=== PATIENT | female | born 1935 | race Caucasian/White ===

== ENCOUNTER 2017-10-07 19:52 | Inpatient (IN) | payer OTHER ==
[~2017-10-07] VITALS: Ht 157.5 cm; Wt 54.7 kg
--- NOTE | 2017-10-07 20:03 | ED AMS/SEIZURE/WEAK/DIZZY ---
History of Present Illness General Chief Complaint: General Adult Stated Complaint: BIBA WEAKNESS Source: patient, EMS Exam Limitations: no limitations Vital Signs & Intake/Output Vital Signs & Intake/Output Vital Signs Date Time Temp Pulse Resp B/P B/P Pulse O2 O2 Flow FiO2 Mean Ox Delivery Rate 10/07 2328 97.4 82 18 118/62 96 Room Air 10/07 2009 98.8 99 18 149/72 95 ED Intake and Output 10/08 0000 10/07 1200 Intake Total 1000 Output Total Balance 1000 Intake, IV 1000 Patient 115 lb Weight Allergies Uncoded Allergies: Allergy Other N Med Allergies N Triage Nurses Notes Reviewed? yes Onset: Gradual Duration: day(s): Timing: recent history Injury Environment: home Severity: moderate Modifying Factors: Improves With: rest. Associated Symptoms: weakness HPI: 82 yo woman from home, presents with weakness x 1 day. Per the patient, she slipped to the floor and could not get up. She did not hit her head or lose consciousness. She did not feel palpitations or chest pain. She notes continued weakness. Past History Medical History Any Pertinent Medical History? see below for history Surgical History Surgical History: none Psychosocial History What is your primary language [place] Family History Hx Contributory? No Review of Systems Review of Systems Constitutional: Reports: no symptoms. EENTM: Reports: no symptoms. Respiratory: Reports: no symptoms. Cardiovascular: Reports: no symptoms. GI: Reports: no symptoms. Genitourinary: Reports: no symptoms. Musculoskeletal: Reports: no symptoms. Skin: Reports: no symptoms. Neurological/Psychological: Reports: no symptoms. Hematologic/Endocrine: Reports: no symptoms. Immunologic/Allergic: Reports: no symptoms. All Other Systems: Reviewed and Negative Physical Exam Physical Exam General Appearance: well developed/nourished, mild distress Head: atraumatic, normal appearance Eyes: Bilateral: normal appearance, PERRL, EOMI. Ears, Nose, Throat: normal pharynx, dry mucosa Neck: normal inspection, supple, full range of motion Respiratory: normal breath sounds, chest non-tender, no respiratory distress, quiet respiration, lungs clear Gastrointestinal: normal bowel sounds, soft, non-tender, no organomegaly Rectal: normal exam, normal rectal tone Back: normal inspection, normal range of motion Extremities: normal range of motion Neurologic/Psych: no motor/sensory deficits, awake, alert, oriented x 3 Skin: intact, normal color, warm/dry Core Measures ACS in differential dx? No CVA/TIA Diagnosis No Sepsis Present: No Sepsis Focused Exam Completed? No Progress Differential Diagnosis: UTI/pyelo, dehydration vs other. Plan of Care: Orders Procedure Date/time Status Nothing by Mouth 10/08 B Active Pathway - chart 10/08 26 Active House Staff 10/08 002 Active Patient Data 10/08 26 Active Code Status 10/08 26 Active VTE Mechanical Prophylaxis 10/08 UNK Active Patient Data 10/07 235 Active Intake & Output 10/08 2347 Active Saline Lock 10/07 234 Active Misc Message 10/07 2345 Active ED Holding Orders 10/07 2345 Active Admit to inpatient 10/07 234 Active Vital Signs 10/07 2345 Active Code Status 10/07 2345 Complete URINALYSIS 10/08 1999 Complete TROPONIN LEVEL 10/08 1999 Complete LIPASE 10/08 1999 Complete HEPATIC FUNCTION PANEL 10/08 1999 Complete D-DIMER 10/08 1999 Complete CBC WITHOUT DIFFERENTIAL 10/08 1999 Complete BASIC METABOLIC PANEL 10/08 1999 Complete AMYLASE 10/08 1999 Complete EKG 10/08 1999 Active Current Medications Sig/Arminda Start time Last Medication Dose Stop Time Status Admin Heparin Sodium 5,000 UNIT Q8 10/08 0600 UNVr (Porcine) Heparin Sodium 25,000 UNIT Q24H 10/08 0115 UNVr (Porcine) (Heparin) Sodium Chloride 500 ML Heparin Sodium 5,000 UNIT ONCE ONE 10/08 0115 UNVr (Porcine) 10/08 0116 (Heparin Bolus) Acetaminophen 325 MG Q6 PRN 10/08 0030 UNVr (Tylenol) Laboratory Tests 10/07/170: Anion Gap 16, Estimated GFR 39 L, BUN/Creatinine Ratio 41.5 H, Glucose 117 H, Calcium 9.6, Total Bilirubin 0.8, Direct Bilirubin 0.6 H, AST 90 H, ALT 61 H, Alkaline Phosphatase 123, Troponin I 0.02, Total Protein 6.8, Albumin 4.2, Amylase 61, Lipase 115, D-Dimer High Sensitivty 6 H, CBC w Diff MAN DIFF ORDERED, RBC 5.07, MCV 84.4, MCH 27.3, MCHC 32.4 L, RDW 14.5, MPV 8.6, Gran % 84.7 H, Lymphocytes % 5.2 L, Monocytes % 7.0, Eosinophils % 0.1, Basophils % 3.0 H, Absolute Granulocytes 17.0 H, Segmented Neutrophils 92 H, Absolute Lymphocytes 1.0 L, Lymphocytes 3 L, Monocytes 5, Absolute Monocytes 1.4 H, Absolute Eosinophils 0, Absolute Basophils 0.6, Platelet Estimate VERIFIED BY SMEAR, Normocytic RBCs VERIFIED, Normochromic RBCs VERIFIED, Fld Total RBCs Counted 100 10/07/172012: Urine Color LA, Urine Clarity HAZY H, Urine pH 5.5, Ur Specific [place] >= 1.030, Urine Protein TRACE H, Urine Ketones NEG, Urine Nitrite NEG, Urine Bilirubin NEG@ICTO, Urine Urobilinogen 0.2, Ur Leukocyte Esterase TRACE H, Ur Microscopic SEDIMENT EXAMINED, Urine RBC 1-3, Urine WBC 5-10 H, Ur Epithelial Cells MOD H, Urine Bacteria MOD H, Hyaline Casts RARE H, Urine Hemoglobin SMALL H, Urine Glucose NEG Diagnostic Imaging: Viewed by Me: Radiology Read, CT Scan. Discussed w/RAD: Radiology Read, CT Scan. Radiology Impression: PATIENT: DAMIAN REYES PRESENT AGE: 82 PATIENT ACCOUNT NO: [id number] : 35 LOCATION: [facility] ORDERING PHYSICIAN: Spencer Beyer MD SERVICE DATE: 10/07/17 EXAM TYPE: CAT - CT HEAD WO IV CONTRAST EXAMINATION: CT HEAD WITHOUT CONTRAST CLINICAL INFORMATION: Mental status change. Weakness. COMPARISON: None TECHNIQUE : Contiguous axial imaging was performed from the skull base to vertex without intravenous administration of contrast. DLP: 615.53 mGy-cm FINDINGS: There is no evidence of acute intracranial hemorrhage or territorial infarction. No abnormal mass effect or midline shift is seen. Paulino to white matter differentiation is well preserved. No extra-axial fluid collections are identified. There is atrophy with prominence of the ventricles and the sulci and hypodensity of the periventricular white matter due to chronic small vessel ischemic disease. There is vascular calcifications of the internal carotid arteries bilaterally. The osseous structures and soft tissues are normal. The mastoid air cells and visualized portions of the paranasal sinuses are well aerated. IMPRESSION: No acute intracranial pathology. DICTATED BY: Luis Velez MD DATE/TIME DICTATED:2099 PORTABLE CANTEEN OPERATOR:WHITNEY DATE/TIME TRANSCRIBED:10/07/172099 CONFIDENTIAL, DO NOT COPY WITHOUT APPROPRIATE AUTHORIZATION. <Electronically signed in Other Vendor System> SIGNED BY: Luis Velez MD 10/07/172103 CXR Impression: PATIENT: DAMIAN REYES PRESENT AGE : 82 PATIENT ACCOUNT NO: [id number] : 35 LOCATION: [facility] ORDERING PHYSICIAN: Spencer Beyer MD SERVICE DATE: 10/07/17 EXAM TYPE: RAD - XRY-PORTABLE CHEST XRAY EXAMINATION: XR PORTABLE CHEST CLINICAL INFORMATION: Chest pain. COMPARISON: Chest radiograph 01/18/2009. TECHNIQUE: Portable frontal view of the chest was obtained. FINDINGS: The lungs are clear. No pleural effusion. Cardiomediastinal silhouette and pulmonary vasculature are within normal limits. No acute osseous finding. IMPRESSION: No acute cardiopulmonary disease. DICTATED BY: Amadou Ford MD DATE/TIME DICTATED:2054 PORTABLE CANTEEN OPERATOR:WHITNEY DATE/TIME TRANSCRIBED:10/07/172054 CONFIDENTIAL, DO NOT COPY WITHOUT APPROPRIATE AUTHORIZATION. <Electronically signed in Other Vendor System> SIGNED BY: Amadou Ford MD 10/07/172058, PATIENT: DAMIAN REYES PRESENT AGE: 82 PATIENT ACCOUNT NO: [id number] : 35 LOCATION: [facility] ORDERING PHYSICIAN: Spencer Beyer MD SERVICE DATE: 10/07/17 EXAM TYPE: CAT - CTA CHEST- PULMONARY EMBOLISM EXAMINATION: CT ANGIOGRAM OF THE CHEST WITH AND WITHOUT CONTRAST (CT PULMONARY ANGIOGRAM FOR PE) CLINICAL INFORMATION: +dimer, dyspnea COMPARISON: Chest x-ray 10/07/2017 TECHNIQUE: Prior to contrast administration, noncontrast localization images were obtained. Subsequently, multidetector volumetric imaging was performed from the thoracic inlet to below the diaphragms following the administration of 75 mL Optiray 320 intravenous contrast. No contrast reaction reported. Sagittal, coronal, and MIP oblique sagittal reformatted images were obtained on the CT workstation, uploaded to PACS, and reviewed. Total exam dose-length product 230.04 mGy-cm. FINDINGS: QUALITY OF STUDY/CONTRAST BOLUS: Satisfactory PULMONARY ARTERIES: There are several subsegmental bilateral lower lobe emboli, right greater than left. Overall clot burden is relatively mild. THORACIC AORTA: No aneurysm or dissection. There is atherosclerotic calcification along the aorta. LUNG: There is subsegmental atelectasis bilaterally. A branching tubular opacity in the lateral right middle lobe has the appearance of mucoid impaction. There is a 3 mm left upper lobe nodule on image 102/438 laterally. PLEURA: No pleural effusion or pneumothorax. MEDIASTINUM: The visualized thyroid gland is unremarkable. A small hiatal hernia is suspected. No mediastinal lymphadenopathy is seen. Cardiac size is within normal limits; no pericardial effusion. No evidence of septal bowing or right heart strain. CHEST WALL/AXILLA: No axillary or internal mammary lymphadenopathy. OSSEOUS STRUCTURES: No acute or suspicious osseous abnormality. UPPER ABDOMEN: Unremarkable. No reflux of contrast into the hepatic veins to suggest elevated right heart pressures. IMPRESSION: 1. Several subsegmental bilateral lower lobe emboli, right greater than left. 2. Branching tubular opacity in the lateral right middle lobe, suspicious for mucoid impaction. Airway obstruction secondary to endobronchial mass cannot be excluded. 3. Left upper lobe 3 mm lung nodule. According to the UPDATED 2017 Fleischner Society recommendations, the advised follow-up imaging for solid nodules < 6 mm is: LOW RISK PATIENT: No routine follow-up. HIGH RISK PATIENT: Optional CT at 12 months. VTE: positive This critical result was discussed with Spencer Beyer on 1:03 AM, and it was ascertained that the content and urgency of the report was understood at the time of direct communication. DICTATED BY: Rajesh Woodall MD DATE/TIME DICTATED:10/08/1752 PORTABLE CANTEEN OPERATOR:WHITNEY DATE/ TIME TRANSCRIBED:10/08/1752 CONFIDENTIAL, DO NOT COPY WITHOUT APPROPRIATE AUTHORIZATION. <Electronically signed in Other Vendor System> SIGNED BY: Rajesh Woodall MD 10/08/17 0109 Initial ED EKG: RBBB Departure Departure Disposition: STILL A PATIENT Condition: Stable Clinical Impression Primary Impression: Weakness Secondary Impressions: Acute renal failure, Dehydration, Leukocytosis, Pulmonary emboli Referrals: Patient Has No Primary Care Dr (PCP/Family) Departure Forms: Customer Survey General Discharge Information Comments 10/08/17, 0:33... called daughter and discussed results/admission... ct angio pending. 10/08/17, 1:10am.. .discussed with [facility]... pt with subsegmental PE 's. Admission Note Spoke With: Filipe MCBRIDE,[facility] Documentation of Exam: Documentation of any treatments & extenuating circumstances including Concerns Regarding Discharge (functional status, medication knowledge or non-compliance, living conditions, etc.) that warrant an admission rather than observation: pt with weakness, elevated bun/cr ratio... pt merits iv fluids. elevated wbc count without source... will follow symptoms. also with pulmonary emboli, low clot burden. she will likely need short vs [facility] care. Critical Care Note Critical Care Note Critical Care Time: 30-74 min
--- NOTE | 2017-10-07 20:59 | RADIOLOGY REPORT ---
EXAMINATION: XR PORTABLE CHEST CLINICAL INFORMATION: Chest pain. COMPARISON: Chest radiograph 01/18/2009. TECHNIQUE: Portable frontal view of the chest was obtained. FINDINGS: The lungs are clear. No pleural effusion. Cardiomediastinal silhouette and pulmonary vasculature are within normal limits. No acute osseous finding. IMPRESSION: No acute cardiopulmonary disease.
--- NOTE | 2017-10-07 21:04 | CT SCAN REPORT ---
EXAMINATION: CT HEAD WITHOUT CONTRAST CLINICAL INFORMATION: Mental status change. Weakness. COMPARISON: None TECHNIQUE: Contiguous axial imaging was performed from the skull base to vertex without intravenous administration of contrast. DLP: 615.53 mGy-cm FINDINGS: There is no evidence of acute intracranial hemorrhage or territorial infarction. No abnormal mass effect or midline shift is seen. Paulino to white matter differentiation is well preserved. No extra-axial fluid collections are identified. There is atrophy with prominence of the ventricles and the sulci and hypodensity of the periventricular white matter due to chronic small vessel ischemic disease. There is vascular calcifications of the internal carotid arteries bilaterally. The osseous structures and soft tissues are normal. The mastoid air cells and visualized portions of the paranasal sinuses are well aerated. IMPRESSION: No acute intracranial pathology.
[2017-10-07 22:57] LABS: ABSOLUTE BASOPHIL COUNT 0.6 /CUMM (0.0-0.2); ABSOLUTE EOSINOPHIL COUNT 0 /CUMM (0.0-0.7); ABSOLUTE MONOCYTE COUNT 1.4 /CUMM (0.10-0.60); EOSINOPHIL % 0.1 % (0-5); HEMATOCRIT 42.7 % (37-47); MEAN CORPUSCULAR HGB 27.3 PG (27.0-31.0); MEAN CORPUSCULAR HGB CONC 32.4 G/DL (33.0-37.0); MEAN CORPUSCULAR VOLUME 84.4 FL (81.0-99.0); MEAN PLATELET VOLUME 8.6 FL (7.4-10.4); PLATELET COUNT 519 /CUMM (130-400); RBC DISTRIBUTION WIDTH 14.5 % (11.5-14.5); RED BLOOD CELL CT 5.07 /CUMM (4.20-5.40)
[2017-10-07 23:00] LABS: GRANULOCYTE % 84.7 % (42.2-75.2)
--- NOTE | 2017-10-08 01:09 | CT SCAN REPORT ---
EXAMINATION: CT ANGIOGRAM OF THE CHEST WITH AND WITHOUT CONTRAST (CT PULMONARY ANGIOGRAM FOR PE) CLINICAL INFORMATION: +dimer, dyspnea COMPARISON: Chest x-ray 10/07/2017 TECHNIQUE: Prior to contrast administration, noncontrast localization images were obtained. Subsequently, multidetector volumetric imaging was performed from the thoracic inlet to below the diaphragms following the administration of 75 mL Optiray 320 intravenous contrast. No contrast reaction reported. Sagittal, coronal, and MIP oblique sagittal reformatted images were obtained on the CT workstation, uploaded to PACS, and reviewed. Total exam dose-length product 230.04 mGy-cm. FINDINGS: QUALITY OF STUDY/CONTRAST BOLUS: Satisfactory PULMONARY ARTERIES: There are several subsegmental bilateral lower lobe emboli, right greater than left. Overall clot burden is relatively mild. THORACIC AORTA: No aneurysm or dissection. There is atherosclerotic calcification along the aorta. LUNG: There is subsegmental atelectasis bilaterally. A branching tubular opacity in the lateral right middle lobe has the appearance of mucoid impaction. There is a 3 mm left upper lobe nodule on image 102/438 laterally. PLEURA: No pleural effusion or pneumothorax. MEDIASTINUM: The visualized thyroid gland is unremarkable. A small hiatal hernia is suspected. No mediastinal lymphadenopathy is seen. Cardiac size is within normal limits; no pericardial effusion. No evidence of septal bowing or right heart strain. CHEST WALL/AXILLA: No axillary or internal mammary lymphadenopathy. OSSEOUS STRUCTURES: No acute or suspicious osseous abnormality. UPPER ABDOMEN: Unremarkable. No reflux of contrast into the hepatic veins to suggest elevated right heart pressures. IMPRESSION: 1. Several subsegmental bilateral lower lobe emboli, right greater than left. 2. Branching tubular opacity in the lateral right middle lobe, suspicious for mucoid impaction. Airway obstruction secondary to endobronchial mass cannot be excluded. 3. Left upper lobe 3 mm lung nodule. According to the UPDATED 2017 Fleischner Society recommendations, the advised follow-up imaging for solid nodules < 6 mm is: LOW RISK PATIENT: No routine follow-up. HIGH RISK PATIENT: Optional CT at 12 months. VTE: positive This critical result was discussed with Spencer Beyer on 10/08/2017 1:03 AM, and it was ascertained that the content and urgency of the report was understood at the time of direct communication.
--- NOTE | 2017-10-08 01:33 | History & Physical ---
Niurka Davis 10/08/17 0132: General Information and HPI MD Statement: I have seen and personally examined DAMIAN REYES and documented this H&P. The patient is a 82 year old F who presented with a patient stated chief complaint of [Weakness]. Source of Information: patient Exam Limitations: not alert/orientated, clinical condition, confusion, poor historian History of Present Illness: Ms. Reyes is a 82yo F w/ unknown PMHs and no previous inpatient admission at [facility], presented to ER with weakness 1 day. Based on the ER record, patient was sent in from home with some family members including her daughter, and patient slept on the floor and could not get up from there, however denied hitting her head or loss of consciousness. During our clinical interaction, without patient's family in room, patient appeared to be drowsy and fell asleep from time to time during history taking. However patient denies any discomfort in the past 2 weeks, and denied fever/ night sweat/weight change/cough/SOB/Chest Pain/Palpitation/exercise intolerance/ Abdominal pain/bowel movement/urinary abnormality, or other skin/musculoskeletal /neurological disorders. Patient stated that she lives by herself and takes care of herself and cooks for herself. She also stated that she could walk by herself without any use of walker/cane. She said her daughter came in with her from time to time. However patient appeared not to be oriented to time or place , despite being able to follow all commands. She also denied remember anything before ER visit, and denied remembering that she fell on the ground. Allergies/Medications Allergies: Uncoded Allergies: Allergy Other N Med Allergies N Past History Medical History Any Pertinent Medical History? unobtainable Surgical History Surgical History: none Review of Systems Review of Systems Constitutional: Reports: see HPI. Exam & Diagnostic Data Last 24 Hrs of Vital Signs/I&O Vital Signs Date Time Temp Pulse Resp B/P B/P Pulse O2 O2 Flow FiO2 Mean Ox Delivery Rate 10/07 2328 97.4 82 18 118/62 96 Room Air 10/07 2009 98.8 99 18 149/72 95 Intake & Output 10/08 0800 10/08 0000 10/07 1600 Intake Total 1000 Output Total Balance 1000 Intake, IV 1000 Patient 52.163 kg Weight Physical Exam General Appearance Alert, Cooperative, No Acute Distress, Oriented to self and birthday Skin No Significant Lesion Skin Temp/Moisture Exam: Warm/Dry Sepsis Skin Exam (color): Normal for Ethnicity HEENT Atraumatic, PERRLA, dry mucous Neck Supple, No JVD Cardiovascular Regular Rate Lungs Clear to Auscultation, Normal Air Movement Abdomen Normal Bowel Sounds, Soft, No Tenderness Neurological Lethargic BUE 4/5 strength BLE 3/5 strength, reflex intact, sensations grossly intact Extremities No Edema, Normal Pulses, No Tenderness/Swelling, deformed great toe joints however no tenderness. Last 24 Hrs of Labs/Dominick: Laboratory Tests 10/07/172149: Anion Gap 16, Estimated GFR 39 L, BUN/Creatinine Ratio 41.5 H, Glucose 117 H, Calcium 9.6, Total Bilirubin 0.8, Direct Bilirubin 0.6 H, AST 90 H, ALT 61 H, Alkaline Phosphatase 123, Creatine Kinase Pending, Troponin I 0.02, Total Protein 6.8, Albumin 4.2, Amylase 61, Lipase 115, TSH Pending, Cortisol PM Sample Pending, D-Dimer High Sensitivty 215 H, CBC w Diff MAN DIFF ORDERED, RBC 5.07, MCV 84.4, MCH 27.3, MCHC 32.4 L, RDW 14.5, MPV 8.6, Gran % 84.7 H, Lymphocytes % 5.2 L, Monocytes % 7.0, Eosinophils % 0.1, Basophils % 3.0 H, Absolute Granulocytes 17.0 H, Segmented Neutrophils 92 H, Absolute Lymphocytes 1.0 L, Lymphocytes 3 L, Monocytes 5, Absolute Monocytes 1.4 H, Absolute Eosinophils 0, Absolute Basophils 0.6, Platelet Estimate VERIFIED BY SMEAR, Normocytic RBCs VERIFIED, Normochromic RBCs VERIFIED, Fld Total RBCs Counted 100 10/07/172012: Urine Color LA, Urine Clarity HAZY H, Urine pH 5.5, Ur Specific [place] >= 1.030, Urine Protein TRACE H, Urine Ketones NEG, Urine Nitrite NEG, Urine Bilirubin NEG@ICTO, Urine Urobilinogen 0.2, Ur Leukocyte Esterase TRACE H, Ur Microscopic SEDIMENT EXAMINED, Urine RBC 1-3, Urine WBC 5-10 H, Ur Epithelial Cells MOD H, Urine Bacteria MOD H, Hyaline Casts RARE H, Urine Hemoglobin SMALL H, Urine Glucose NEG Assessment/Plan Assessment: Ms. Reyes is a 82yo F w/ unknown PMHs and no previous inpatient admission at [facility], presented to ER with weakness 1 day. Based on the ER record, patient was sent in from home with some family members including her daughter, and patient slept on the floor and could not get up from there, however denied hitting her head or loss of consciousness. During our clinical interaction, without patient's family in room, patient appeared to be drowsy and fell asleep from time to time during history taking. However patient denies any discomfort in the past 2 weeks, and denied fever/ night sweat/weight change/cough/SOB/Chest Pain/Palpitation/exercise intolerance/ Abdominal pain/bowel movement/urinary abnormality, or other skin/musculoskeletal /neurological disorders. Patient stated that she lives by herself and takes care of herself and cooks for herself. She also stated that she could walk by herself without any use of walker/cane. She said her daughter came in with her from time to time. However patient appeared not to be oriented to time or place , despite being able to follow all commands. She also denied remember anything before ER visit, and denied remembering that she fell on the ground. On admission, Vitals: Stable, afebrile, BP 149/72, pulse 99, room air -CBC: Leukocytosis 20.0, H/H stable, PLT 519, -BMP: Unremarkable except elevated creatinine 1.3 (no baseline). Mildly elevated LFTs AST/ALT 90/61 -UA/Microbiology: Moderate bacteria/trace LE positive, negative nitrite -CXR: No acute -Head CT: No acute -Chest CTA: 1. Several subsegmental bilateral lower lobe emboli, right greater than left. 2. Branching tubular opacity in the lateral right middle lobe, suspicious for mucoid impaction. Airway obstruction secondary to endobronchial mass cannot be excluded. 3. Left upper lobe 3 mm lung nodule. -EKG: NSR with RBBB, w/o significant ST-T abnormalities. -Interventions in ER: IV fluids Problem list & Assessment: Was clear evidence of chest CTA showing pulmonary emboli, with questionable mucoid impaction/malignancy, patient's symptoms could be iritis mainly from the pulmonary embolism. However patient's history was not complete due to clinical conditions, and her leukocytosis was of unknown etiology without fever and no consolidation/opacity was found on CTA, and patient denied any urinary symptoms, despite being positive bacteriuria/LE. Patient's physical examination reveals a dry mucosa which could lead to the AK I as well. Patient's transaminitis was also of unknown etiology, with a benign physical examination of abdomen. Patient's daughter was not reached through the number provided. #Pulmonary embolism #Mucoid impaction, pending rule out malignancy #Questionable UTI #DIGNA secondary to dehydration #Transaminitis #Weakness #Leukocytosis, with unclear etiology, likely reactive Hospital Course: - Admit to general medicine floor physical examination -Keep NPO for formal swallow eval in the AM. leukocytosis could be reactive. DVT prophylaxis Heparin + ALPS NPO Full Code JOSE B[place]MING[place] [phone] As Ranked By This Provider Problem List: 1. Pulmonary emboli 2. Leukocytosis 3. Acute renal failure 4. Dehydration 5. Weakness Core Measures/Misc (02/25) Acute Coronary Syndrome ACS Diagnosis: No Congestive Heart Failure Congestive Heart Failure Diagnosis No Cerebrovascular Accident CVA/TIA Diagnosis: No VTE (View Protocol) VTE Risk Factors Age>40 No Mechanical VTE Prophylaxis d/t N/A MechProphylax Ordered No VTE Pharm Prophylaxis d/t NA PharmProphylax ordered Sepsis (View protocol) Sepsis Present: No Mahad Davenport 10/08/17 0159: Resident Review Statement Resident Statement: examined this patient, discussed with internal audit manager Other Findings: Patient is a 82-year-old female with no significant past medical history presented to the ER was brought in by ambulance to the ER for a mechanical fall and weakness. Patient cannot provide much history given her clinical condition. Most of the data is obtained from ER notes. Patient apparently was brought in by EMS status post mechanical fall. Patient slipped to the floor and could not get up. She has been very weak for the past few days. Denies any chest pain, palpitations, nausea, vomiting, abdominal pain, fevers, chills, urinary or bowel symptoms. At examination she appears very drowsy and fatigued. Does not remember the incidents at home. There is no past medical history the system. Patient's daughter Jose([phone]) could not be reached over the phone. In the ED vitals were stable Labs significant for an leukocytosis of 20 with no left shift, platelet count 519, BUN 54, creatinine 1.3(no baseline), AST 90, ALT 61, troponin 0.02. D- dimer 2156 UA positive for trace leukocyte esterase, moderately high bacteria Chest x-ray, head CT negative Chest CTA positive for several subsegmental bilateral lower lobe emboli R>L. Branching tubular opacity in the lateral right middle lobe? Mucoid impaction / endobronchial mass? Malignancy. 3 mm left upper lobe lung nodule seen Physical exam General: Drowsy, lethargic, falls asleep while answering questions, not oriented to time, place or person HEENT: PERRLA, EOMI, mucous membranes dry Chest: Diminished breath sounds bilaterally CVS: S1 and S2 heard, no murmurs Abdomen: BS positive, no tenderness Neurological: Power 3/5 in b/l LE, 4/ 5 in b/l UE, reflexes intact Extremities: No edema, poor feet hygiene, calluses under bilateral feet, unkept nails Assessment Bilateral subsegmental pulmonary embolism Endobronchial mass in the right middle lobe? Malignancy Leukocytosis? Reactive Transaminitis Acute kidney injury(? CKD) likely prerenal due to dehydration Weakness and Generalized deconditioning due to Dehydration/ infection Asymptomatic bactiuria Plan Admit patient to [facility] Vitals per protocol IV hydration with D5 half normal saline at 75 cc an hour IV heparin for PE. Patient is guaiac-negative in the ED Dopplers b/l lower erxtremities Pulmonary consult in a.m. Right upper quadrant ultrasound for transaminitis Leukocytosis likely reactive/?UTI, patient afebrile, we will watch off antibiotics at this time Pancultures Kidney injury likely secondary to dehydration, will check BP in a.m., avoid nephrotoxins Check TSH, cortisol, creatinine kinase We will keep patient nothing by mouth for now Formal swallow eval in a.m. PT/OT consult for weakness and generalized deconditioning Patient will require a STR placement DVT prophylaxis IV heparin Full code We'll try to contact the patient's daughter over the phone. Please talk to family about the goals of care/CODE STATUS. Willingness of the family to pursue further workup about the questionable endobronchial mass. Filipe MCBRIDE, [facility] 10/08/17 0433: Attending MD Review Statement Attending Statement Attending MD Statement: examined this patient, discuss w/resident/PA/[employer], agreed w/resident/PA/[employer], reviewed images, amended to note Attending Assessment/Plan: 82 yo F with no known medical history who has never been evaluated at [facility] is brought from home for weakness and fall. It is unclear if patient has baseline dementia, but she was unable to provide us with any history. She was extremely tired and fell asleep. We tried to reach her daughter but no response. From what the ER reported, patient was very weak and fell at home. She was unable to get off the floor. No h/o head strike or LOC. Patient currently denies any symptoms. Vitals stable. Exam as above. Labs: WBC 20, H/H 13.9/42.7, Plt 519, D-dimer 2156 , BUN 54, creat 1.3 (baseline not known), glucose 117, T. Bili 0.8, AST 90, ALT 61, CK 887, trop 0.02. UA hazy, trace protein, trace LE with WBC 5-10. CXR: no acute disease. CT head: no acute pathology. CTA chest: several subsegmental bilateral lower lobe emboli, branching tubular opacity in RML suspicious for mucoid impaction or airway obstruction from endobronchial mass. Left upper lobe nodule+. EKG: sinus rhythm, RBBB, Qtc 509 (no old EKG for comparison). No acute ST-T wave changes. Assessment and plan: 1. Weakness, physical deconditioning 2. Bilateral pulmonary embolism 3. CT suggestive of mucoid impaction or mass causing obstruction rule out malignancy 4. Leukocytosis likely reactive 5. RBBB on EKG 6. DIGNA dehydration 7. Transaminitis 8. Asymptomatic bacteriuria - Admit to General medicine - Panculture - [facility] nebs - IV heparin per PTT protocol plan to transition to eliquis - Guaiac all stools - Obtain LE dopplers in AM - Obtain Echo to assess for right heart strain - Serial EKG and troponin to rule out ACS - Gentle hydration - Pulm consult - Outpatient Heme-Onc follow up - Please obtain collateral information from family about patient's medical problems, goals of care and if they are agreeable for further evaluation of the lung mass - RUQ ultrasound in AM - Check tylenol levels, TSH, salicylate level and Hep panel - Avoid NSAIDs - NPO, obtain swallow eval in AM - PT eval, eventual STR. DVT ppx IV heparin. Full code (code status needs to be discussed with family)
[2017-10-08 02:00] VITALS: BP 152/72
--- NOTE | 2017-10-08 04:38 | Admission Certification ---
Admission Certification Certification Statement - As attending physician, I certify that at the time of - admission, based on clinical presentation, severity of - symptoms, need for further diagnostic testing and - therapeutic interventions, and risk of adverse outcomes - without in-hospital treatment, in my clinical assessment, - this patient requires an acute hospital stay for a minimum - of two nights or longer. I have also considered psychsocial - factors such as support system, advanced age, financial - issues, cognitive issues, and failed out-patient treatments, - past re-admission history, safety of patient, and lack of - compliance as applicable. Specific rationale supporting this admission is: Weakness, bilateral pulmonary embolism
[2017-10-08 06:56] VITALS: BP 158/74
--- NOTE | 2017-10-08 07:47 | Event Note ---
Event Note Event Note: 82-year-old female with past medical history of ? Alzheimer's dementia, restless leg syndrome, not medical checkup in many years, presented with weakness, was found to have bilateral pulmonary embolism, not sure about the provoking factor. She is currently receiving IV heparin, and is undergoing further workup. Bilateral lower extremity Doppler has been negative for DVT, and the patient has been ambulated. SHe is saturating well on room air. In the meantime, we are also working up for her possible dementia. Also, her leukocytosis possibly is reactive.
[2017-10-08 08:18] LABS: PTT 82 SEC (25-37)
[2017-10-08 08:30] LABS: ABSOLUTE BASOPHIL COUNT 0 /CUMM (0.0-0.2); ABSOLUTE EOSINOPHIL COUNT 0.1 /CUMM (0.0-0.7); ABSOLUTE GRANULOCYTE CT 10.7 /CUMM (1.4-6.5); ABSOLUTE LYMPH COUNT 1.8 /CUMM (1.2-3.4); ABSOLUTE MONOCYTE COUNT 0.8 /CUMM (0.10-0.60); BASOPHIL % 0.2 % (0.0-2.0); EOSINOPHIL % 0.4 % (0-5); GRANULOCYTE % 79.9 % (42.2-75.2); MEAN CORPUSCULAR HGB 28.5 PG (27.0-31.0); MEAN CORPUSCULAR HGB CONC 33.9 G/DL (33.0-37.0); MEAN CORPUSCULAR VOLUME 84.1 FL (81.0-99.0); MEAN PLATELET VOLUME 8.8 FL (7.4-10.4); PLATELET COUNT 459 /CUMM (130-400); RBC DISTRIBUTION WIDTH 14.1 % (11.5-14.5); RED BLOOD CELL CT 4.27 /CUMM (4.20-5.40); WHITE BLOOD CELL COUNT 13.3 /CUMM (4.8-10.8)
[2017-10-08 08:51] LABS: HEMATOCRIT 35.9 % (37-47)
--- NOTE | 2017-10-08 10:20 | Cons- Pulmonary ---
General Information and HPI Consulting Request Date of Consult: 10/08/17 Requested By: Edd Reason for Consult: Pulmonary embolism History of Present Illness: Patient is 82-year-old brought to the ER because of weakness her history was nonspecific and because of an elevated d-dimer CTA was done which showed small subsegmental pulmonary emboli and mucous plugging and distant right middle lobe bronchus. Patient denies any respiratory symptoms. Is no history of prior DVT or PE. Allergies/Medications Allergies: Uncoded Allergies: Allergy Other N Med Allergies N Review of Systems Review of Systems Constitutional: Denies: chills, fever. Cardiovascular: Denies: chest pain, edema. Respiratory: Denies: cough, hemoptysis, short of breath. GI: Denies: abdominal pain, diarrhea, melena. Past History Travel History Traveled to [place] past 21 day No Medical History Blood Transfusion Hx: No Neurological: dementia Surgical History Surgical History: 1 Psychosocial History Where Do You Live? Home Services at Home: None Smoking Status: Never Smoked Exam & Diagnostic Data Last 24 Hrs of Vital Signs/I&O Vital Signs Date Time Temp Pulse Resp B/P B/P Pulse O2 O2 Flow FiO2 Mean Ox Delivery Rate 10/08 0656 97.3 76 18 158/74 96 10/08 0200 97.6 83 18 152/72 95 10/08 0150 Room Air 10/07 2329 97.4 82 18 118/62 96 Room Air 10/07 2010 98.8 99 18 149/72 95 Intake & Output 10/08 1600 10/08 0800 10/08 0000 Intake Total 303.8 1000 Output Total 400 Balance -96.2 1000 Intake, IV 303.8 1000 Intake, Oral 0 Number 0 Bowel Movements Output, Urine 400 Patient 121 lb 115 lb Weight Weight Bed scale Measurement Method Room air oxygen saturation 95% HNT exam shows no adenopathy or jugular venous distention exam for chest shows clear lung renee cardiac exam shows regular S1 and S2 without murmurs abdomen is soft nontender extremities without edema or calf tenderness Last 48 Hrs of Labs/Dominick: Laboratory Tests 10/08/17 0709: Anion Gap 10, Estimated GFR > 60, BUN/Creatinine Ratio 48.8 H, APTT 82 H, CBC w Diff NO MAN DIFF REQ, RBC 4.27, MCV 84.1, MCH 28.5, MCHC 33.9, RDW 14.1, MPV 8.8, Gran % 79.9 H, Lymphocytes % 13.4 L, Monocytes % 6.1, Eosinophils % 0.4, Basophils % 0.2, Absolute Granulocytes 10.7 H, Absolute Lymphocytes 1.8, Absolute Monocytes 0.8 H, Absolute Eosinophils 0.1, Absolute Basophils 0, Hepatitis A IgM Ab Pending, Hep Bs Antigen Pending, Hep B Core IgM Ab Conf Pending, Hepatitis C Antibody Pending, Acetaminophen < 10.0 L 10/07/172149: Anion Gap 16, Estimated GFR 39 L, BUN/Creatinine Ratio 41.5 H, Glucose 117 H, Calcium 9.6, Total Bilirubin 0.8, Direct Bilirubin 0.6 H, AST 90 H, ALT 61 H, Alkaline Phosphatase 123, Creatine Kinase 887 H, Troponin I 0.02, Total Protein 6.8, Albumin 4.2, Amylase 61, Lipase 115, TSH 1.420, Cortisol PM Sample 22.0 H, D-Dimer High Sensitivty 2156 H, CBC w Diff MAN DIFF ORDERED, RBC 5.07, MCV 84.4 , MCH 27.3, MCHC 32.4 L, RDW 14.5, MPV 8.6, Gran % 84.7 H, Lymphocytes % 5.2 L, Monocytes % 7.0, Eosinophils % 0.1, Basophils % 3.0 H, Absolute Granulocytes 17.0 H, Segmented Neutrophils 92 H, Absolute Lymphocytes 1.0 L, Lymphocytes 3 L, Monocytes 5, Absolute Monocytes 1.4 H, Absolute Eosinophils 0, Absolute Basophils 0.6, Platelet Estimate VERIFIED BY SMEAR, Normocytic RBCs VERIFIED, Normochromic RBCs VERIFIED, Fld Total RBCs Counted 100 10/07/172012: Urine Color LA, Urine Clarity HAZY H, Urine pH 5.5, Ur Specific [place] >= 1.030, Urine Protein TRACE H, Urine Ketones NEG, Urine Nitrite NEG, Urine Bilirubin NEG@ICTO, Urine Urobilinogen 0.2, Ur Leukocyte Esterase TRACE H, Ur Microscopic SEDIMENT EXAMINED, Urine RBC 1-3, Urine WBC 5-10 H, Ur Epithelial Cells MOD H, Urine Bacteria MOD H, Hyaline Casts RARE H, Urine Hemoglobin SMALL H, Urine Glucose NEG Assessment/Plan Impression/Plan: 82-year-old woman without history symptoms was found to have multiple subsegmental pulmonary emboli but appears to be mucous plugging and a distal right middle lobe bronchus. The explanation for thromboembolism is this point unknown. There is no evidence of hemodynamic compromise Recommendations: Continue anticoagulation. Assess fall risk. Outpatient hypercoagulable workup. No immediate need for further evaluation of right middle lobe mucous plugging. Repeat CBCs. Consult Acknowledgment - Thank you for your consult request.
--- NOTE | 2017-10-08 10:57 | ULTRASOUND REPORT ---
EXAMINATION: US TRIPLEX OF LOWER EXTREMITIES, BILATERAL CLINICAL INFORMATION: Pulmonary embolus. COMPARISON: None TECHNIQUE: Color-flow triplex imaging with spectral analysis and compression Doppler were performed on the lower extremities. FINDINGS: Respiratory variation, normal compression and augmented flow are noted throughout the lower extremities. The visualized common femoral vein, superficial femoral vein, profunda femoral vein, popliteal vein and midcalf peroneal and posterior tibial venous segments show no evidence of deep venous thrombosis. There is no Sullivan's cyst. IMPRESSION: Normal triplex scan without evidence of deep venous thrombosis involving the lower extremities.
--- NOTE | 2017-10-08 12:37 | ULTRASOUND REPORT ---
EXAMINATION: US ABDOMEN LIMITED CLINICAL INFORMATION: Transaminitis. Rule out acute pathology.. COMPARISON: None TECHNIQUE: Real-time imaging of the right upper quadrant abdominal viscera. FINDINGS: PANCREAS: Normal. LIVER: Normal. The liver demonstrates normal size, contour and echogenicity. No focal lesion or intrahepatic biliary duct dilatation. GALLBLADDER: Normal. The gallbladder is physiologically distended without evidence of stones, sludge, polyps, wall thickening or pericholecystic fluid. COMMON BILE DUCT: Normal in caliber measuring 0.4 cm in diameter. RIGHT KIDNEY: There is a 0.6 x 0.4 x 0.5 cm simple cyst in the lower pole of the right kidney. No hydronephrosis. No renal calculi or suspicious focal parenchymal lesions. The kidney measures 10.0 cm in maximum dimension. FREE FLUID: None. IMPRESSION: 1. Incidental subcentimeter-sized simple cyst in the lower pole of the right kidney. 2. Otherwise unremarkable right upper quadrant ultrasound.
[2017-10-08 15:03] VITALS: BP 148/78
--- NOTE | 2017-10-08 16:40 | CT SCAN REPORT ---
EXAMINATION: CT ABDOMEN AND PELVIS WITHOUT CONTRAST CLINICAL INFORMATION: Unremarkable pulmonary embolism. Patient has not visited physician for a long time. No pertinent history available. Rule out tumor, pelvic vein thrombosis, other abdominal pathology. COMPARISON: Right upper quadrant ultrasound dated 10/08/2017. CTA of the chest dated 10/07/2017. TECHNIQUE: Multidetector volumetric imaging was performed from the superior aspect of the liver through the pubic symphysis. Sagittal and coronal reformatted images were obtained on the technologist workstation. DLP: 229.34 mGy-cm. FINDINGS: LUNG BASES: Aortic and mitral annular calcifications seen. Included lower lungs unremarkable. CHEST WALL: There is a 1.7 x 1.2 cm diameter oval enhancing mass in the lower lateral left breast. LIVER, GALLBLADDER, AND BILIARY TREE: The liver is normal in size, shape, and attenuation. No focal hepatic lesion on noncontrast imaging. No biliary ductal dilatation is present. The gallbladder is decompressed and not well assessed. No definite evidence of radiopaque gallstones, gallbladder wall thickening, or obvious pericholecystic inflammatory changes. PANCREAS: Unremarkable on noncontrast imaging. SPLEEN, ADRENAL GLANDS: Unremarkable on noncontrast imaging. KIDNEYS AND URETERS: The kidneys are normal in size, shape, and attenuation. There is a 2.2 cm partially exophytic mid left renal low-attenuation mass with mean attenuation values of 7.8 Hounsfield units, consistent with a benign cyst. The tiny subcentimeter sized lower pole right renal cyst seen on ultrasound is not appreciated on. No hydronephrosis or hydroureter seen. Evaluation for renal and ureteral calculi is limited due to excretion of contrast in the collecting system from previously administered IV contrast. No perinephric stranding. BLADDER: Well distended with the previously administered IV contrast. Posterior bladder diverticulum is seen arising from the posterior and left side of the bladder base. PELVIC VISCERA: Unremarkable. GASTROINTESTINAL TRACT: The small and large bowel are unremarkable. The appendix is not seen. ABDOMINAL WALL: A tiny fat-containing umbilical hernia is seen. LYMPH NODES, VASCULAR: Severe atherosclerotic calcifications of the aorta and branch vessels noted. No significant abdominal or pelvic adenopathy. No free fluid. OSSEOUS STRUCTURES: There is a convex right thoracolumbar scoliosis. No suspicious bone findings. IMPRESSION: 1. 1.7 x 1.2 cm diameter enhancing mass in the lower lateral left breast. This is a suspicious finding especially in the clinical setting provided. Malignancy must be excluded. Further assessment with dedicated mammogram and ultrasound is recommended. 2. No acute intra-abdominal or pelvic process seen on noncontrast imaging. Please note, sensitivity for the evaluation on noncontrast study is not adequate to exclude pelvic vein thrombosis and is limited for the evaluation of tumors or other masses. 3. Left renal cyst. The tiny cyst seen on recent right upper quadrant ultrasound in the right kidney is not appreciated on this noncontrast study. 4. Small bladder diverticulum. 5. Severe atherosclerotic vascular calcifications.
--- NOTE | 2017-10-08 18:48 | PN- Att Addend ---
Attending Addendum Attending Brief Note S: The patient remains somewhat vague a historian. Daughter present at bedside who states she is improved, however not at baseline mental status. There has been a definite change in her behavior. O: VS: Vital Signs Date Time Temp Pulse Resp B/P B/P Pulse O2 O2 Flow FiO2 Mean Ox Delivery Rate 10/08 1503 97.9 79 18 148/78 95 Room Air 10/08 0656 97.3 76 18 158/74 96 10/08 0200 97.6 83 18 152/72 95 10/08 0150 Room Air 10/07 2329 97.4 82 18 118/62 96 Room Air 10/07 2009 98.8 99 18 149/72 95 Intake & Output 10/08 1600 10/08 0800 10/08 0000 Intake Total 1240 303.8 1000 Output Total 600 400 Balance 640 -96.2 1000 Intake, IV 760 303.8 1000 Intake, Oral 480 0 Number 0 Bowel Movements Output, Urine 600 400 Patient 121 lb 115 lb Weight Weight Bed scale Measurement Method Current Medications Sig/Arminda Start time Last Medication Dose Route Stop Time Status Admin Acetaminophen 325 MG Q6 PRN 10/08 0030 AC PO Dextrose/Sodium 1,000 ML Q13H 10/08 0215 DC Chloride IV Ergocalciferol 50,000 IU Tu 10/09 0900 AC PO 11/27 0901 Heparin Sodium 5,000 UNIT Q8 10/08 0600 CAN (Porcine) SC Heparin Sodium 25,000 UNIT Q24H 10/08 0115 AC 10/08 (Porcine) IV 1026 Sodium Chloride 500 ML Heparin Sodium 5,000 UNIT ONCE ONE 10/08 0115 DC 10/08 (Porcine) IV 10/08 0116 0254 Patient Medication 1 ED ONE ONE 10/08 1500 DC Teaching ED 10/08 1501 Sodium Chloride 1,000 ML Q13H 10/08 0345 DC 10/08 IV 10/08 1644 0357 Sodium Chloride 1,000 ML BOLUS ONE 10/07 2115 DC 10/07 IV 10/07 2214 2204 Physical Exam: HEENT: eyes- PERRLA, EOMI denise- slightly dry mucosa Neck: no JVD/bruits Chest: clear Cor: RRR nl S1, S2 w/o murm Abd: BS+, soft, NT Ext: no edema Labs/Tests: Laboratory Tests 10/08/17 0709: Anion Gap 10, Estimated GFR > 60, BUN/Creatinine Ratio 48.8 H, Vitamin B12 346, 25-OH Vitamin D Total 7.3 L, APTT 82 H, CBC w Diff NO MAN DIFF REQ, RBC 4.27, MCV 84.1, MCH 28.5, MCHC 33.9, RDW 14.1, MPV 8.8, Gran % 79.9 H, Lymphocytes % 13.4 L, Monocytes % 6.1, Eosinophils % 0.4, Basophils % 0.2, Absolute Granulocytes 10.7 H, Absolute Lymphocytes 1.8, Absolute Monocytes 0.8 H, Absolute Eosinophils 0.1, Absolute Basophils 0, Hepatitis A IgM Ab NONREACTIVE, Hep Bs Antigen NONREACTIVE, Hep B Core IgM Ab Conf NONREACTIVE, Hepatitis C Antibody NONREACTIVE, Acetaminophen < 10.0 L 10/07/172149: Anion Gap 16, Estimated GFR 39 L, BUN/Creatinine Ratio 41.5 H, Glucose 117 H, Calcium 9.6, Total Bilirubin 0.8, Direct Bilirubin 0.6 H, AST 90 H, ALT 61 H, Alkaline Phosphatase 123, Creatine Kinase 887 H, Troponin I 0.02, Total Protein 6.8, Albumin 4.2, Amylase 61, Lipase 115, TSH 1.420, Cortisol PM Sample 22.0 H, D-Dimer High Sensitivty 2156 H, CBC w Diff MAN DIFF ORDERED, RBC 5.07, MCV 84.4 , MCH 27.3, MCHC 32.4 L, RDW 14.5, MPV 8.6, Gran % 84.7 H, Lymphocytes % 5.2 L, Monocytes % 7.0, Eosinophils % 0.1, Basophils % 3.0 H, Absolute Granulocytes 17.0 H, Segmented Neutrophils 92 H, Absolute Lymphocytes 1.0 L, Lymphocytes 3 L, Monocytes 5, Absolute Monocytes 1.4 H, Absolute Eosinophils 0, Absolute Basophils 0.6, Platelet Estimate VERIFIED BY SMEAR, Normocytic RBCs VERIFIED, Normochromic RBCs VERIFIED, Fld Total RBCs Counted 100 10/07/172012: Urine Color LA, Urine Clarity HAZY H, Urine pH 5.5, Ur Specific [place] >= 1.030, Urine Protein TRACE H, Urine Ketones NEG, Urine Nitrite NEG, Urine Bilirubin NEG@ICTO, Urine Urobilinogen 0.2, Ur Leukocyte Esterase TRACE H, Ur Microscopic SEDIMENT EXAMINED, Urine RBC 1-3, Urine WBC 5-10 H, Ur Epithelial Cells MOD H, Urine Bacteria MOD H, Hyaline Casts RARE H, Urine Hemoglobin SMALL H, Urine Glucose NEG CT Abd/Pel: IMPRESSION: 1. 1.7 x 1.2 cm diameter enhancing mass in the lower lateral left breast. This is a suspicious finding especially in the clinical setting provided. Malignancy must be excluded. Further assessment with dedicated mammogram and ultrasound is recommended. 2. No acute intra-abdominal or pelvic process seen on noncontrast imaging. Please note, sensitivity for the evaluation on noncontrast study is not adequate to exclude pelvic vein thrombosis and is limited for the evaluation of tumors or other masses. 3. Left renal cyst. The tiny cyst seen on recent right upper quadrant ultrasound in the right kidney is not appreciated on this noncontrast study. 4. Small bladder diverticulum. 5. Severe atherosclerotic vascular calcifications. Venous US LE: IMPRESSION: Normal triplex scan without evidence of deep venous thrombosis involving the lower extremities. Impression/Plan: #Acute Bilateral Pulmonary Emboli- as above, noted on CTPA. No evidence DVT on venous US LE. With unprovoked clots, consider underlying hematologic/oncologic condition. CT of abd/pelvis suggests a left breast mass. Plan: Continue IV heparin at present. Will need to review CTPA with radiology as breast mass was not mentioned on chest CT report. Will do breast exam for correlation. #Weakness/Mental Status Changes- the patient's daughter states she normally is functional at home. May have a dementia, however has been a change in her status. CT of head negative, however may consider brain mets if indeed she has a breast mass. Plan: PT consult obtained to assess function. Appears to need STR. Will consider brain MRI pending her follow-up mental status. Add B12, RPR to complete dementia work-up. Will need Geriatric consult in STR. Check urine culture. #Leukocytosis- no definite infection. May be reactive. Plan: Follow-up WBC. Await cultures.
[2017-10-08 21:13] LABS: PTT 49 SEC (25-37)
[2017-10-08 21:31] VITALS: BP 150/88
[2017-10-09 04:20] LABS: PTT 92 SEC (25-37)
[2017-10-09 06:11] VITALS: BP 164/82
--- NOTE | 2017-10-09 07:27 | PN- Housestaff ---
See Addendum Subjective Follow-up For: B/L PE Complaints: no complaints Subjective: Patient followed by me today. She feels more comfortable, his breathing stable on room air, does not offer any complaints. Of note, she often is forgetful. her daughter Jose was updated by me today about the CT scan results as we were looking for causes of PE triggers. She has a left breast lump, painless. Nipple is partially inverted/retracted. No peau d'orange noted. Daughter notified about the result. Discussed about MRI of brain tomorrow to rule out brain mets. Daughter is very agreeable to the plan. Patient is very forgetful and does not fully understand her situation, so does not have capacity to make dicisions currently. Review of Systems Constitutional: Reports: see HPI. Objective Last 24 Hrs of Vital Signs/I&O Vital Signs Date Time Temp Pulse Resp B/P B/P Pulse O2 O2 Flow FiO2 Mean Ox Delivery Rate 10/09 1451 98.1 85 18 144/78 97 Room Air 10/09 0800 97 Nasal Cannula 10/09 0611 97.8 70 22 164/82 97 Room Air 10/08 2131 98.3 74 18 150/88 97 Room Air Intake & Output 10/09 1600 10/09 0800 10/09 0000 Intake Total 683 626 9959 Output Total 450 750 300 Balance 475 -470 720 Intake, IV 85 160 60 Intake, Oral 840 120 960 Output, Urine 450 750 300 Physical Exam General Appearance: Alert, Cooperative, No Acute Distress, forgetful Skin: No Rashes, No Breakdown, No Significant Lesion Skin Temp/Moisture Exam: Warm/Dry Sepsis Skin Exam (color): Normal for Ethnicity HEENT: Atraumatic, PERRLA, EOMI, Mucous Membr. moist/pink Neck: Supple, No JVD, No thryomegaly Lymphatic: Axillary nl, Cervical nl Cardiovascular: Regular Rate, Normal S1, Normal S2 Lungs: Clear to Auscultation, Normal Air Movement Abdomen: Normal Bowel Sounds, Soft, No Tenderness Neurological: grossly intact, but forgetful Extremities: No Clubbing, No Cyanosis, No Edema Vascular: Normal Pulses, Pulses Symmetrical Breasts: Left breast has lump palpable ~2x3 cm, nontender, no nipple discharge, there is nipple inversion/retraction but no discharge or peau-d'orange, right breast seems firm too but not hard, no nipple changes noted Current Medications: Current Medications Sig/Arminda Start time Last Medication Dose Route Stop Time Status Admin Acetaminophen 325 MG Q6 PRN 10/08 0030 AC 10/08 PO 2252 Apixaban 10 MG BID 10/09 1018 AC 10/09 PO 1330 Ergocalciferol 50,000 IU Tu 10/09 0900 AC 10/09 PO 11/27 0901 0814 Heparin Sodium 2,187 UNIT BOLUS ONE 10/08 2129 DC 10/08 (Porcine) IV 10/08 2130 2158 Heparin Sodium 25,000 UNIT Q24H 10/08 0115 DC 10/08 (Porcine) IV 2246 Sodium Chloride 500 ML Patient Medication 1 ED ONE ONE 10/09 190 Teaching ED 10/09 1900 Last 24 Hrs of Lab/Dominick Results Last 24 Hrs of Labs/Mics: Laboratory Tests 10/09/17 1030: APTT Cancelled 10/09/17 0710: Anion Gap 10, Estimated GFR > 60, BUN/Creatinine Ratio 31.7 H, CBC w Diff NO MAN DIFF REQ, RBC 4.05 L, MCV 84.9, MCH 28.0, MCHC 33.0, RDW 14.1, MPV 9.0, Gran % 71.8, Lymphocytes % 17.9 L, Monocytes % 8.1, Eosinophils % 1.4, Basophils % 0.8, Absolute Granulocytes 6.2, Absolute Lymphocytes 1.5, Absolute Monocytes 0.7 H, Absolute Eosinophils 0.1, Absolute Basophils 0.1, RPR Titer/ FTA Pending 10/09/17 0330: APTT 92 H 10/08/17 1939: APTT 49 H Assessment/Plan Assessment: 82-year-old female with past medical history of ? Alzheimer's dementia, restless leg syndrome, not medical checkup in many years, presented with weakness, was found to have bilateral pulmonary embolism, not sure about the provoking factor. #B/l Pulmonary embolism Patient was being treated with IV heparin, which has been switched to oral Eliquis according to PE protocol today. She will take 10 mg of Eliquis twice a day for 7 days and switched to 5 mg twice a day then on. She does not have renal compromise so can get full dose of the Eliquis per protocol. The duration of the blood thinner however, has to be determined as per trigger of the PE. In her case, we do not have any past medical history to help us, but her left breast seems suspicious for tumor. Also see appears to be confused/forgetful at times, thus we need to find out if she has any brain metastases before we proceed. In case if she has brain metastases, we will have to proceed immediately towards radiation else, her breast tissue could be followed up as an outpatient as well while still working up with her. #Breast mass, Left side Left lower quad has lump. needs further workup. Either as out patient or earlier if she has brain mets too. #Dementia Needs to rule out brain mets first. Can consider geriatric assessment as out patient later. #Leukocytosis Her leukocytosis possibly is reactive. #Low Vit D Continue Vit D supplementation 50,000 U Vit D weekly x 8 weeks and then 2000 U daily. Diet: Regular diet DVT ppx: Eliquis now Code sttus: Full code Problem List: 1. Pulmonary emboli 2. Leukocytosis Pain Ratin Pain Location: - Pain Goal: Pain 4 or less Pain Plan: prn Tomorrow's Labs & Rationales: CBC
[2017-10-09 08:36] LABS: ABSOLUTE BASOPHIL COUNT 0.1 /CUMM (0.0-0.2); ABSOLUTE EOSINOPHIL COUNT 0.1 /CUMM (0.0-0.7); ABSOLUTE GRANULOCYTE CT 6.2 /CUMM (1.4-6.5); ABSOLUTE LYMPH COUNT 1.5 /CUMM (1.2-3.4); ABSOLUTE MONOCYTE COUNT 0.7 /CUMM (0.10-0.60); BASOPHIL % 0.8 % (0.0-2.0); EOSINOPHIL % 1.4 % (0-5); GRANULOCYTE % 71.8 % (42.2-75.2); HEMATOCRIT 34.4 % (37-47); MEAN CORPUSCULAR VOLUME 84.9 FL (81.0-99.0); PLATELET COUNT 387 /CUMM (130-400); RBC DISTRIBUTION WIDTH 14.1 % (11.5-14.5); RED BLOOD CELL CT 4.05 /CUMM (4.20-5.40); WHITE BLOOD CELL COUNT 8.6 /CUMM (4.8-10.8)
--- NOTE | 2017-10-09 08:38 | PN- Pulmonary ---
Subjective HPI/Critical Care Issues: Patient is comfortable without shortness breath chest pain or hemoptysis Objective Current Medications: Current Medications Sig/Arminda Start time Last Medication Dose Route Stop Time Status Admin Acetaminophen 325 MG Q6 PRN 10/08 0030 AC 10/08 PO 2252 Ergocalciferol 50,000 IU Tu 10/09 0900 AC 10/09 PO 11/27 0901 0814 Heparin Sodium 2,187 UNIT BOLUS ONE 10/08 2130 DC 10/08 (Porcine) IV 10/08 2131 2158 Heparin Sodium 25,000 UNIT Q24H 10/08 0115 AC 10/08 (Porcine) IV 2246 Sodium Chloride 500 ML Patient Medication 1 ED ONE ONE 10/08 1500 DC Teaching ED 10/08 1501 Sodium Chloride 1,000 ML Q13H 10/08 0345 DC 10/08 IV 10/08 1644 0357 Vital Signs & I&O Last 24 Hrs of Vitals and I&O: Vital Signs Date Time Temp Pulse Resp B/P B/P Pulse O2 O2 Flow FiO2 Mean Ox Delivery Rate 10/09 0611 97.8 70 22 164/82 97 Room Air 10/08 2131 98.3 74 18 150/88 97 Room Air 10/08 1503 97.9 79 18 148/78 95 Room Air Intake & Output 10/09 1600 10/09 0800 10/09 0000 Intake Total 280 1020 Output Total 750 300 Balance -470 720 Intake, IV 160 60 Intake, Oral 120 960 Output, Urine 750 300 Oxygen saturation 97% exam for chest shows clear lung renee cardiac exam shows regular S1 and S2 without murmurs Impression/Plan Impression/Plan Impression/Plan: 82-year-old woman presented with hemodynamically insignificant pulmonary emboli. CT scan shows an area of suspected mucus plugging. Recommendations: Continue anticoagulation. Assess fall risk. Outpatient hypercoagulable workup. No immediate need for further evaluation of right middle lobe mucous plugging. Repeat CBCs. Follow-up CT scan will be necessary as outpatient can consider Mucomyst nebs and gentle pulmonary toilet
[2017-10-09 14:51] VITALS: BP 144/78
[2017-10-09 22:00] VITALS: BP 136/70
[2017-10-10 06:21] VITALS: BP 182/86
--- NOTE | 2017-10-10 07:42 | PN- Housestaff ---
Dary MCBRIDE,Baljit 10/10/17 0742: Subjective Follow-up For: B/L PE Complaints: no complaints Subjective: Patient followed by me today. She feels more comfortable, his breathing stable on room air, does not offer any complaints. Of note, she often is forgetful. BP has been reported to be high early this morning 210/100. Patient does not endorse any chest pain, shortness of breath, palpitation. On manual check by me, it was 170/82. Nursing staff notified. Patient is very forgetful and does not fully understand her situation, so does not have capacity to make dicisions currently. Review of Systems Constitutional: Reports: no symptoms, see HPI. Objective Last 24 Hrs of Vital Signs/I&O Vital Signs Date Time Temp Pulse Resp B/P B/P Pulse O2 O2 Flow FiO2 Mean Ox Delivery Rate 10/10 1455 97.3 84 20 134/80 97 Room Air 10/10 0809 90 20 210/100 96 Room Air 10/10 0621 97.7 79 20 182/86 96 10/09 2200 98.2 93 19 136/70 95 Room Air Intake & Output 10/10 1600 10/10 0800 05 0000 Intake Total 500 240 240 Output Total 400 450 450 Balance 100 -210 -210 Intake, IV 20 Intake, Oral 480 240 240 Number 3 1 Bowel Movements Output, Urine 400 450 450 Physical Exam General Appearance: Alert, Oriented X3, Cooperative, No Acute Distress Other Physical Findings: Skin: No Rashes, No Breakdown, No Significant Lesion Skin Temp/Moisture Exam: Warm/Dry Sepsis Skin Exam (color): Normal for Ethnicity HEENT: Atraumatic, PERRLA, EOMI, Mucous Membr. moist/pink Neck: Supple, No JVD, No thryomegaly Lymphatic: Axillary nl, Cervical nl Cardiovascular: Regular Rate, Normal S1, Normal S2 Lungs: Clear to Auscultation, Normal Air Movement b/l Abdomen: Normal Bowel Sounds, Soft, No Tenderness Neurological: grossly intact, but forgetful Extremities: No Clubbing, No Cyanosis, No Edema Vascular: Normal Pulses, Pulses Symmetrical Breasts: Left breast has lump palpable ~2x3 cm, nontender, no nipple discharge, there is nipple inversion/retraction but no discharge or peau-d'orange, right breast seems firm too but not hard, no nipple changes noted (noted yesterday) Current Medications: Current Medications Sig/Arminda Start time Last Medication Dose Route Stop Time Status Admin Acetaminophen 325 MG Q6 PRN 10/08 0030 AC 10/08 PO 2252 Apixaban 10 MG BID 10/09 1018 AC 10/10 PO 1220 Ergocalciferol 50,000 IU Tu 10/09 0900 AC 10/09 PO 11/27 0901 0814 Patient Medication 1 ED ONE ONE 10/10 1115 DC 10/10 [facility] ED 10/10 1116 1219 Patient Medication 1 ED ONE ONE 10/09 1900 DC 10/10 [facility] ED 10/09 1901 0700 Assessment/Plan Assessment: 82-year-old female with past medical history of ? Alzheimer's dementia, restless leg syndrome, not medical checkup in many years, presented with weakness, was found to have bilateral pulmonary embolism, not sure about the provoking factor. #B/l Pulmonary embolism Patient is on Eliquis 10 mg twice a day for 7 days D2 and will be switched to 5 mg twice a day then on. The duration of the blood thinner however, has to be determined as per trigger of the PE. In her case, we do not have any past medical history to help us, but her left breast has lump. This could represent cancer and this concern was communicated with the patient (she does not appear to understand ) and her daughter (who understands the seriousness of the situation). Also patient appears to be confused/forgetful at times, thus MRI was done today, which was negative for mets or primary. Her breast lump could be followed up as an outpatient as well while still working up with her. #Breast mass, Left side Left lower quad has lump. needs further workup. No mets identified so far. #Dementia Needs to rule out brain mets first. Can consider geriatric assessment as out patient later. #Leukocytosis Her leukocytosis possibly is reactive. #Low Vit D Continue Vit D supplementation 50,000 U Vit D weekly x 8 weeks and then 2000 U daily. Diet: Regular diet DVT ppx: Eliquis now Code status: Full code Problem List: 1. Pulmonary emboli 2. Leukocytosis 3. Acute renal failure Pain Ratin Pain Location: - Pain Goal: Pain 4 or less Pain Plan: prn Tomorrow's Labs & Rationales: Yoandy Jose MD 10/10/17 7923: Attending MD Review Statement Attending Statement Attending MD Statement: examined this patient, discuss w/resident/PA/CANTILEVER CRANE OPERATOR, agreed w/resident/PA/CANTILEVER CRANE OPERATOR, discussed with family, reviewed EMR data (avail), discussed with nursing, discussed with case mgmt, reviewed images, amended to note Attending Assessment/Plan: The patient was seen and discussed with house staff, nursing, case management and also spoke with her daughter. MRI of brain was negative for metastatic disease. Patient may go home with services with plans to work up breast mass as OP (mammogram/US, etc.). She will need to establish with PCP and daughter agrees to GFP in [place]. Concern is that the patient will not allow further workup/ evaluation of breast mass, etc.
[2017-10-10 08:09] VITALS: BP 210/100
--- NOTE | 2017-10-10 08:45 | PN- Pulmonary ---
Subjective HPI/Critical Care Issues: Patient is out of bed comfortable without shortness of breath or chest pain Objective Current Medications: Current Medications Sig/Arminda Start time Last Medication Dose Route Stop Time Status Admin Acetaminophen 325 MG Q6 PRN 10/08 0030 AC 10/08 PO 2252 Apixaban 10 MG BID 10/09 1018 AC 10/09 PO 2010 Ergocalciferol 50,000 IU Tu 10/09 0900 AC 10/09 PO 11/27 0901 0814 Heparin Sodium 25,000 UNIT Q24H 10/08 0115 DC 10/08 (Porcine) IV 2246 Sodium Chloride 500 ML Patient Medication 1 ED ONE ONE 10/09 1900 DC 10/10 Teaching ED 10/09 1901 0700 Vital Signs & I&O Last 24 Hrs of Vitals and I&O: Vital Signs Date Time Temp Pulse Resp B/P B/P Pulse O2 O2 Flow FiO2 Mean Ox Delivery Rate 10/10 0809 90 20 210/100 96 Room Air 10/10 0621 97.7 79 20 182/86 96 10/09 2200 98.2 93 19 136/70 95 Room Air 10/09 1451 98.1 85 18 144/78 97 Room Air Intake & Output 10/10 1600 10/10 0800 05 0000 Intake Total 240 240 Output Total 450 450 Balance -210 -210 Intake, Oral 240 240 Number 1 Bowel Movements Output, Urine 450 450 Oxygen saturation 96% exam for chest shows clear lung renee cardiac exam shows a regular S1 and S2 without murmurs Impression/Plan Impression/Plan Impression/Plan: 82-year-old with recent pulmonary emboli hemodynamically and respiratory stable Recommendations: Continue anticoagulation. Assess fall risk. Outpatient hypercoagulable workup. No immediate need for further evaluation of right middle lobe mucous plugging. Repeat CBCs. Follow-up CT scan will be necessary as outpatient can consider Mucomyst nebs and gentle pulmonary toilet no further pulmonary suggestions please call for further issues
--- NOTE | 2017-10-10 11:08 | ECHOCARDIOGRAM REPORT ---
DAMIAN REYES Age: 82 : 1935 Gender: F Exam Date: 10/09/2017 19:12 Exam Location: [address] [place] [address] Ht (in): 62 Wt (lb): 120 BSA: 1.55 BP: 158 / 74 Ordering Physician: Baljit Foote MD Referring Physician: Baljit Foote MD Technologist: Erika Leon [facility] Room Number: [id number] Indications: PULMONARY HYPERTENSION Rhythm: Sinus Technical Quality: Good FINDINGS Left Ventricle Normal size left ventricle. Mild concentric left ventricular hypertrophy. Normal left ventricular ejection fraction visually estimated at >65 %. No obvious regional wall motion abnormalities. Abnormal relaxation filling pattern of the left ventricle for age (stage 1 diastolic dysfunction). Right Ventricle The right ventricle is normal in size and function. Right Atrium The right atrium is normal in size. Left Atrium The left atrium is normal in size. The interatrial septum is intact. Mitral Valve Moderate thickening/calcification of the mitral valve leaflets. Moderate to marked mitral annular calcification. No mitral regurgitation. Aortic Valve Diffuse thickening of the aortic valve cusps with reduced excursion. [id number]-pm-[id number] aortic stenosis. No aortic regurgitation. Tricuspid Valve The tricuspid valve is normal in structure and function. There is trace tricuspid regurgitation. Pulmonary artery systolic pressure is normal. Pulmonic Valve Structurally normal pulmonic valve. There is no pulmonic regurgitation. Pericardium Normal pericardium without effusion. No pleural effusion. Great Vessels Normal aortic root dimension. The aortic arch and great vessels are well seen and are normal. CONCLUSIONS Mild concentric left ventricular hypertrophy. Normal left ventricular ejection fraction visually estimated at >65 Abnormal relaxation filling pattern of the left ventricle for age (stage 1 diastolic dysfunction). The left atrium is normal in size. Moderate thickening/calcification of the mitral valve leaflets. Moderate to marked mitral annular calcification. No mitral regurgitation. Diffuse thickening of the aortic valve cusps with reduced excursion. Ltyl-nw-gqysqdge aortic stenosis. No aortic regurgitation. Pulmonary artery systolic pressure is normal. Camilo Bose M.D. (Electronically Signed) Final Date: 10 Oct 2017 11:08 MEASUREMENTS (Male / Female) Normal Values 2D ECHO LV Diastolic Diameter PLAX 3.5 cm 4.2 - 5.9 / 3.9 - 5.3 cm LV Systolic Diameter PLAX 1.7 cm 2.1 - 4.0 cm LV Fractional Shortening PLAX 51.4 % 25 - 46 % LV Ejection Fraction 2D Teich 83.5 % IVS Diastolic Thickness 1.2 cm LVPW Diastolic Thickness 1.2 cm LV Relative Wall Thickness 0.7 RV Internal Dim ED PLAX 2.6 cm 1.9 - 3.8 cm LVOT Diameter 2.0 cm Aortic Root Diameter 3.0 cm LA Systolic Diameter LX 3.6 cm 3.0 - 4.0 / 2.7 - 3.8 cm LA Volume 32.0 cm 18 - 58 / 22 - 52 cm Ascending Aorta Diameter 3.2 cm DOPPLER AV Peak Velocity 278.0 cm/s AV Peak Gradient 30.9 mmHg AV Mean Velocity 187.0 cm/s AV Mean Gradient 16.0 mmHg AV Velocity Time Integral 57.6 cm LVOT Peak Velocity 161.0 cm/s LVOT Peak Gradient 10.4 mmHg LVOT Mean Velocity 118.0 cm/s LVOT Mean Gradient 6.0 mmHg LVOT Velocity Time Integral 37.5 cm LVOT Stroke Volume 117.8 cm AV Area Cont Eq vti 2.0 cm AV Area Cont Eq pk 1.8 cm MV Peak Velocity 161.0 cm/s MV Peak Gradient 10.4 mmHg MV Mean Velocity 92.8 cm/s MV Mean Gradient 4.0 mmHg Mitral E Point Velocity 92.1 cm/s Mitral A Point Velocity 135.0 cm/s Mitral E to A Ratio 0.7 MV PHT Velocity 128.0 cm/s MV Deceleration Brooke 494.0 cm/s MV Pressure Half Time 77.7 ms MV Area PHT 2.8 cm MV Deceleration Time 357.0 ms TR Peak Velocity 242.0 cm/s TR Peak Gradient 23.4 mmHg Right Atrial Pressure 5.0 mmHg Pulmonary Artery Systolic Pressu 28.4 mmHg Right Ventricular Systolic Press 28.4 mmHg PV Peak Velocity 117.0 cm/s PV Peak Gradient 5.5 mmHg PV Mean Velocity 80.1 cm/s PV Mean Gradient 3.0 mmHg PV Velocity Time Integral 22.4 cm LV E' Lateral Velocity 3.8 cm/s Mitral E to LV E' Lateral Ratio 24.5 LV E' Septal Velocity 4.7 cm/s Mitral E to LV E' Septal Ratio 19.7
--- NOTE | 2017-10-10 12:16 | MRI REPORT ---
EXAMINATION: MR BRAIN WITHOUT AND WITH CONTRAST CLINICAL INFORMATION: Rule out brain metastases or primary lesion. Forgetfulness and confusion. COMPARISON: Head CT from 10/07/2017. TECHNIQUE: Multiplanar, multisequence imaging of the brain was performed before and after the intravenous administration of 6 mL of Gadavist. FINDINGS: The study is limited with motion artifacts. No diffusion abnormalities are identified to suggest an acute infarct. No mass effect or midline shift is seen. No brain parenchymal signal abnormality is noted. No extra-axial fluid collections are seen. The brainstem and cerebellum are normal. On postcontrast imaging, there is no abnormal parenchymal or leptomeningeal enhancement. Moderate diffuse parenchymal volume loss is noted. There is concordant ex vacuo dilatation of the ventricles. The gradient refocused acquisition demonstrates no pathologic magnetic susceptibility artifact to indicate underlying acute or chronic blood products. The craniovertebral junction, marrow signal, and midline structures are normal. The major intracranial flow voids at the level of the [place] are preserved. The dural venous sinus flow voids are maintained. The mastoid air cells and paranasal sinuses are well aerated. IMPRESSION: Limited study with motion artifacts. No evidence of intracranial metastatic disease. No brain parenchymal signal abnormalities. Moderate diffuse parenchymal volume loss. No acute process.
[2017-10-10 14:55] VITALS: BP 134/80
[2017-10-10 22:16] VITALS: BP 200/110
[2017-10-11 02:11] VITALS: BP 168/90
[2017-10-11 06:35] VITALS: BP 156/76
--- NOTE | 2017-10-11 07:42 | PN- Housestaff ---
Dayr MCBRIDE,Baljit 10/11/17 0741: Subjective Follow-up For: B/L PE Complaints: no complaints Subjective: Patient followed by me today. She remains comfortable, her breathing has been stable on room air, and she does not offer any complaints. Of note, she often is forgetful. VSS, BP WNL today. Patient is very forgetful and does not fully understand her situation, so does not have capacity to make dicisions currently. Review of Systems Constitutional: Reports: no symptoms. Objective Last 24 Hrs of Vital Signs/I&O Vital Signs Date Time Temp Pulse Resp B/P B/P Pulse O2 O2 Flow FiO2 Mean Ox Delivery Rate 10/11 1500 98.0 90 18 112/70 98 Room Air 10/11 0800 78 18 164/80 97 Room Air 10/11 0635 98.2 76 20 156/76 95 Room Air 10/11 0211 168/90 02 2236 210/102 05/ 2216 98.4 100 20 200/110 96 Room Air Intake & Output 10/11 1600 10/11 0800 05 0000 Intake Total 500 250 Output Total 400 300 Balance 500 -400 -50 Intake, IV 20 Intake, Oral 480 250 Number 4 Bowel Movements Output, Urine 400 300 Physical Exam General Appearance: Alert, Oriented X3, Cooperative, No Acute Distress Other Physical Findings: Skin: No Rashes, No Breakdown, No Significant Lesion Skin Temp/Moisture Exam: Warm/Dry HEENT: Atraumatic, PERRLA, EOMI, Mucous Membr. moist/pink Neck: Supple, No JVD, No thryomegaly Lymphatic: Axillary nl, Cervical nl Cardiovascular: Regular Rate, Normal S1, Normal S2 Lungs: Clear to Auscultation, Normal Air Movement b/l Abdomen: Normal Bowel Sounds, Soft, No Tenderness Neurological: grossly intact, but forgetful Extremities: No Clubbing, No Cyanosis, No Edema Vascular: Normal Pulses, Pulses Symmetrical Breasts: Left breast has lump palpable ~2x3 cm, nontender, no nipple discharge, there is nipple inversion/retraction but no discharge or peau-d'orange, right breast seems firm too but not hard, no nipple changes noted (noted 10/09/17) Current Medications: Current Medications Sig/[place] Start time Last Medication Dose Route Stop Time Status Admin Acetaminophen 325 MG Q6 PRN 10/08 0030 AC 10/08 PO 2252 Alprazolam 0.25 MG ONCE ONE 10/10 2114 DC 10/10 PO 10/11 2115 223 Amlodipine Besylate 5 MG DAILY 10/10 2100 AC 10/11 PO 09 Apixaban 10 MG BID 10/09 1018 AC 10/11 PO 0923 Ergocalciferol 50,000 IU Tu 10/09 0900 AC 10/09 PO 11/27 0901 0814 Last 24 Hrs of Lab/Dominick Results Last 24 Hrs of Labs/Mics: Laboratory Tests 10/11/17 0758: CBC w Diff NO MAN DIFF REQ, RBC 4.56, MCV 85.0, MCH 27.9, MCHC 32.8 L, RDW 14.1 , MPV 8.8, Gran % 72.7, Lymphocytes % 16.6 L, Monocytes % 6.9, Eosinophils % 3.2, Basophils % 0.6, Absolute Granulocytes 8.3 H, Absolute Lymphocytes 1.9, Absolute Monocytes 0.8 H, Absolute Eosinophils 0.4, Absolute Basophils 0.1 Assessment/Plan Assessment: 82-year-old female with past medical history of ? Alzheimer's dementia, restless leg syndrome, not medical checkup in many years, presented with weakness, was found to have bilateral pulmonary embolism, not sure about the provoking factor. #B/l Pulmonary embolism, ?unprovoked (no proven provocating factor yet) Patient is on Eliquis 10 mg twice a day for 7 days D3 and will be switched to 5 mg twice a day then on. The duration of the blood thinner will be minimum of six months for now during which she need to be worked-up for PE trigger. Breast tumor is likely given her physical and radiological finding. #Breast mass, Left side Left lower quad has lump. needs further workup. No mets identified so far. MRI of brain was negative for any primary or mets, so urgent radiotherapy seems warranted. #Dementia Needs to rule out brain mets first. Can consider geriatric assessment as out patient later. #Leukocytosis Her leukocytosis possibly is reactive. #Low Vit D Continue Vit D supplementation 50,000 U Vit D weekly x 8 weeks and then 2000 U daily. Diet: Regular diet DVT ppx: Eliquis now Code status: Full code Problem List: 1. Pulmonary emboli 2. Breast lump 3. Dementia Pain Ratin Pain Location: - Pain Goal: Pain 4 or less Pain Plan: prn Tomorrow's Labs & Rationales: - Yoandy Winters MD 10/11/17 0321: Attending MD Review Statement Attending Statement Attending MD Statement: examined this patient, discuss w/resident/PA/DATA NETWORK ARCHITECT, agreed w/resident/PA/DATA NETWORK ARCHITECT, discussed with family, reviewed EMR data (avail), discussed with nursing, discussed with case mgmt, reviewed images, amended to note Attending Assessment/Plan: The patient was seen and discussed with house staff, patient & family (daughter) , nursing, and case management. Patient to go home with services. Will arrange new PCP Dr. Palacios and will attempt to do workup of left breast mass as OP (she will be reluctant). Daughter aware. Will need mammogram and US of left breast initially and subsequent biopsy. Once biopsy arranged will need to hold Apixaban and bridge with Lovenox.
[2017-10-11] MEDS ORDERED: ELIQUIS5 M1 PO ×3 (07:44→12:55)
[2017-10-11] MEDS ORDERED: VITAMIN D250000 UNIT PO ×2 (07:49→12:38)
[2017-10-11 08:00] VITALS: BP 164/80
[2017-10-11 09:47] LABS: ABSOLUTE BASOPHIL COUNT 0.1 /CUMM (0.0-0.2); ABSOLUTE EOSINOPHIL COUNT 0.4 /CUMM (0.0-0.7); ABSOLUTE GRANULOCYTE CT 8.3 /CUMM (1.4-6.5); ABSOLUTE LYMPH COUNT 1.9 /CUMM (1.2-3.4); ABSOLUTE MONOCYTE COUNT 0.8 /CUMM (0.10-0.60); BASOPHIL % 0.6 % (0.0-2.0); EOSINOPHIL % 3.2 % (0-5); GRANULOCYTE % 72.7 % (42.2-75.2); HEMATOCRIT 38.8 % (37-47); MEAN CORPUSCULAR HGB 27.9 PG (27.0-31.0); MEAN CORPUSCULAR HGB CONC 32.8 G/DL (33.0-37.0); MEAN PLATELET VOLUME 8.8 FL (7.4-10.4); PLATELET COUNT 463 /CUMM (130-400); RBC DISTRIBUTION WIDTH 14.1 % (11.5-14.5); RED BLOOD CELL CT 4.56 /CUMM (4.20-5.40); WHITE BLOOD CELL COUNT 11.4 /CUMM (4.8-10.8)
[2017-10-11] MEDS ORDERED: AMLODIPINE BESYL5 M1 PO (12:37)
--- NOTE | 2017-10-11 12:47 | Patient Discharge Instructions ---
Discharge Instructions General Discharge Information You were seen/treated for: Pumlonary Embolism; Breast lump; Dementia Special Instructions: Please follow up with Dr Samano (PCP) on 10/16/17 at 2: 15 pm after your discharge. Please arrive 15 minutes prior to your appointment. Go with Photo ID and insurance then. You need to be checked for breast mass and forgetfulness (? dementia) as an out patient. Please return to emergency if symptoms worsen, or if you fall/bleed. Because of the blood thinner, you have a tendency to bleed more than usual that might need immediate medical attention. Diet Continue normal diet: Yes Recommended Diet: Heart Healthy Activity Full Activity/No Limits: No Activity Self Limited: Yes Acute Coronary Syndrome Inclusion Criteria At DC or during hospital stay patient has or had the following: ACS DIAGNOSIS No Discharge Core Measures Meds if any: Prescribed or Continued at Discharge Meds if any: NOT Prescribed or Continued at Discharge Congestive Heart Failure Inclusion Criteria At DC or during hospital stay patient has or had the following: CHF DIAGNOSIS No Discharge Core Measures Meds if any: Prescribed or Continued at Discharge Meds if any: NOT Prescribed or Continued at Discharge Cerebrovascular accident Inclusion Criteria At DC or during hospital stay patient has or had the following: CVA/TIA Diagnosis No Discharge Core Measures Meds if any: Prescribed or Continued at Discharge Meds if any: NOT Prescribed or Continued at Discharge Venous thromboembolism Inclusion Criteria VTE Diagnosis Yes VTE Type Pulmonary Embolism VTE Confirmed by (Test) CT CHEST ANGIOGRAM Discharge Core Measures - Per Current guidelines, there needs to be overlap - treatment for the first 5 days of Warfarin therapy. - If discharged on Warfarin prior to 5 days of - overlap therapy, the patient will need to be - assessed for post discharge needs including - *Post discharge parental anticoagulation - *Warfarin and/or parental anticoagulation education - *Follow up date to check INR post discharge At least 5 days overlap therapy as Inpatient No (eliquis roach NOT require overla) Meds if any: Prescribed or Continued at Discharge Note: Overlap Therapy is Warfarin and Anticoagulant Meds if any: NOT Prescribed or Continued at Discharge
[2017-10-11 15:00] VITALS: BP 112/70
--- NOTE | 2017-10-11 17:45 | Discharge Summary ---
Visit Information Visit Dates Admission Date: 10/07/17 Discharge Date: 10/11/17 Hospital Course Course Attending Physician: Yoandy Winters MD Primary Care Physician: Dr. Samano Hospital Course: 82-year-old female with past history of ? Alzheimer's dementia, restless leg syndrome, no medical checkup in many years, presented with weakness, was found to have bilateral pulmonary embolism, not sure about the provoking factor. #B/l Pulmonary embolism, ?unprovoked (no proven provocating factor yet) Patient was initially started on IV heparin, and switched to oral anticoagulants. Patient is on Eliquis 10 mg twice a day for 7 days (7th day will be October 15, 2017) and has to start taking 5 mg twice a day henceforth. The duration of the blood thinner will be minimum of six months for now during which she need to be worked-up for PE trigger. Breast tumor is likely given her physical and radiological finding. #Breast mass, Left side Left lower quad has painless lump that needs further workup. No mets identified so far. MRI of brain was negative for any primary or mets, so urgent radiotherapy warranted. Patient is forgetful but mentioned many times that she is not interested to work-up on these findings. Her daughter Lanny, who lives with her, convinces her to get worked-up everytime. #Dementia Needs to rule out brain mets first. Please consider geriatric assessment as out patient. #Leukocytosis Her leukocytosis possibly was reactive. #Low Vit D She was found to be low (7.3) on Vit D, so supplementation of 50,000 U Vit D weekly was started. She received one dose here. Needs 7 more doses and then plan for 2000 U daily. Patient was referred to a new PCP Dr. Samano at [facility] to establish care. Allergies: Uncoded Allergies: Allergy Other N Med Allergies N Significant Procedures: MRI brain: IMPRESSION: Limited study with motion artifacts. No evidence of intracranial metastatic disease. No brain parenchymal signal abnormalities. Moderate diffuse parenchymal volume loss. No acute process. DICTATED BY: Travis Mendoza MD DATE/TIME DICTATED:10/10/171206 WAITER/WAITRESS HEAD:WHITNEY DATE/TIME TRANSCRIBED:10/10/171206 Echo: CONCLUSIONS Mild concentric left ventricular hypertrophy. Normal left ventricular ejection fraction visually estimated at >65 Abnormal relaxation filling pattern of the left ventricle for age (stage 1 diastolic dysfunction). The left atrium is normal in size. Moderate thickening/calcification of the mitral valve leaflets. Moderate to marked mitral annular calcification. No mitral regurgitation. Diffuse thickening of the aortic valve cusps with reduced excursion. Ofob-gq-zyronmol aortic stenosis. No aortic regurgitation. Pulmonary artery systolic pressure is normal. Camilo Bose M.D. (Electronically Signed) Final Date: 10 Oct 2017 11:08 Limited US abdomen: IMPRESSION: 1. Incidental subcentimeter-sized simple cyst in the lower pole of the right kidney. 2. Otherwise unremarkable right upper quadrant ultrasound. DICTATED BY: Bello MCBRIDE,Lynn Yi DATE/TIME DICTATED:10/08/171229 WAITER/WAITRESS HEAD:WHITNEY /TIME TRANSCRIBED:10/08/171229 US Doppler b/l lower ext: IMPRESSION: Normal triplex scan without evidence of deep venous thrombosis involving the lower extremities. DICTATED BY: Wilfrido Hook MD DATE/TIME DICTATED:10/08/171050 WAITER/WAITRESS HEAD:WHITNEY DATE/TIME TRANSCRIBED:10/08/171050 CT abd/pelvis: IMPRESSION: 1. 1.7 x 1.2 cm diameter enhancing mass in the lower lateral left breast. This is a suspicious finding especially in the clinical setting provided. Malignancy must be excluded. Further assessment with dedicated mammogram and ultrasound is recommended. 2. No acute intra-abdominal or pelvic process seen on noncontrast imaging. Please note, sensitivity for the evaluation on noncontrast study is not adequate to exclude pelvic vein thrombosis and is limited for the evaluation of tumors or other masses. 3. Left renal cyst. The tiny cyst seen on recent right upper quadrant ultrasound in the right kidney is not appreciated on this noncontrast study. 4. Small bladder diverticulum. 5. Severe atherosclerotic vascular calcifications. DICTATED BY: Lynn Monsalve MD DATE/TIME DICTATED:10/08/171605 WAITER/WAITRESS HEAD:WHITNEY DATE/TIME TRANSCRIBED:10/08/171605 CTA Chest: IMPRESSION: 1. Several subsegmental bilateral lower lobe emboli, right greater than left. 2. Branching tubular opacity in the lateral right middle lobe, suspicious for mucoid impaction. Airway obstruction secondary to endobronchial mass cannot be excluded. 3. Left upper lobe 3 mm lung nodule. According to the UPDATED 2017 Fleischner Society recommendations, the advised follow-up imaging for solid nodules < 6 mm is: LOW RISK PATIENT: No routine follow-up. HIGH RISK PATIENT: Optional CT at 12 months. VTE: positive This critical result was discussed with Spencer Beyer on 10/08/2017 1:03 AM, and it was ascertained that the content and urgency of the report was understood at the time of direct communication. DICTATED BY: Rajesh Woodall MD DATE/TIME DICTATED:10/08/1752 WAITER/WAITRESS HEAD:WHITNEY DATE/TIME TRANSCRIBED:10/08/1752 CT Head: IMPRESSION: No acute intracranial pathology. DICTATED BY: Luis Velez MD DATE/TIME DICTATED:10/07/172099 WAITER/WAITRESS HEAD:WHITNEY DATE/TIME TRANSCRIBED:10/07/172099 CXR: IMPRESSION: No acute cardiopulmonary disease. DICTATED BY: Amadou Ford MD DATE/TIME DICTATED:10/07/172054 WAITER/WAITRESS HEAD:WHITNEY DATE/TIME TRANSCRIBED:10/07/172054 Disposition Summary Disposition Principal Diagnosis: Pumlonary Embolism; Breast lump Additional Diagnosis: Dementia Discharge Disposition: home health services Discharge Instructions General Discharge Information Code Status: Full Code Patient's Diet: Regular diet Patient's Activity: As tolerated Follow-Up Instructions/Appts: Please follow up with Dr Samano (PCP) on 10/16/17 at 2: 15 pm after your discharge. Please arrive 15 minutes prior to your appointment. Go with Photo ID and insurance then. You need to be checked for breast mass and forgetfulness (? dementia) as an out patient. Please return to emergency if symptoms worsen, or if you fall/bleed. Because of the blood thinner, you have a tendency to bleed more than usual that might need immediate medical attention. Medications at Discharge Discharge Medications: Start taking the following new medications: Ergocalciferol (Vitamin D2) (Vitamin D2) 50,000 UNIT CAPSULE 50,000 International Unit ORAL Tu Qty = 7 No Refills Instructions: . Comments: Last Taken:10/09/17 Time: 8:00 AM Amlodipine Besylate (Amlodipine Besylate) 5 MG TABLET 5 Milligram ORAL DAILY Qty = 30 Refills = 1 Comments: Last Taken:10/11/17 Time: 9:30 AM Apixaban (Eliquis) 5 MG TABLET 0 ORAL SEE INSTRUCTIONS Qty = 68 No Refills Instructions: TAKE TWO TABS TWICE DAILY UNTIL 10/15/17, THEN TAKE ONE TAB WTICE DAILY FOR SIX MONTHS, TO BE REFILLED BY YOUR PCP. Comments: TAKE TWO TABS TWICE DAILY UNTIL 10/15/17, THEN TAKE ONE TAB WTICE DAILY FOR SIX MONTHS, TO BE REFILLED BY YOUR PCP. Last Taken:10/11/17 Time: 9:30 AM Copies To: Selwyn MCBRIDE,Mathew Mcdonough MD,Camilo Medrano Attending MD Review Statement Documenting Attending: Yoandy Winters MD Other Findings: The patient was seen and discussed with house staff, nursing, case management, and family. Agree with the plan of care upon discharge. She will establish new PCP in [facility]. Needs mammogram and breast ultrasound done (left breast mass) and will need eventual biopsy (off Eliquis x 3 d, bridge with Lovenox). The patient's daughter feels that the patient will most likely refuse workup.
== END 2017-10-11 18:30 | disposition home health service (06) | DRG 176 ==
LOC: ERH 19:52 → ERHI 23:46 → 2NB 23:46 → ENRESERV 10-08 00:56 → 2NB 10-08 02:27 → ENPENDDIS 10-11 12:58 → ENTRNSPT 10-11 18:15 → EDTRNSPTSTS 10-11 18:19 → 2NB 10-11 18:30 → CMPTRNSPT 10-11 18:43
PROVIDERS: Pediatrics; Student in an Organized Health Care Education/Training Program
DX: I26.99 Other pulmonary embolism without acute cor pulmonale (principal); N17.9 Acute kidney failure, unspecified; E86.0 Dehydration; G30.9 Alzheimer's disease, unspecified; F02.80 Dementia in other diseases classified elsewhere, unspecified severity, without behavioral disturbance, psychotic disturbance, mood disturbance, and anxiety; I45.10 Unspecified right bundle-branch block; R74.0 Nonspecific elevation of levels of transaminase and lactic acid dehydrogenase [LDH]; D72.829 Elevated white blood cell count, unspecified; G25.81 Restless legs syndrome; N63.0 Unspecified lump in unspecified breast; E55.9 Vitamin D deficiency, unspecified
CPT/HCPCS: 2NBSP; 70552; ERO; 36415; 36592; 70553; 71045; 74176; 81001; 82436; 87040; 87086; 93005; 93010; 93306; 93970; 97110-GO; 97116-GO; 97161-GP; 97530-GO; 99291; A9579; G0480; J1644